=== PATIENT | male | born 1955 | race Caucasian/White ===

== ENCOUNTER 2016-09-17 08:27 | Day surgery (SDC) | payer OTHER ==
[~2016-09-17 08:27] MED LIST: Bupivacaine 0.5% 10 ML SDV ONE; Lactated Ringers 1,000 ML IV SCH; Lidocaine 1% 20 ML MDV ONE; Lidocaine 2% 5 ML SDV ONE; Midazolam 1 MG/ML 2 ML SDV ONE; Propofol 200 MG/20 ML SDV ONE; Sodium Chloride 0.9% 10 ML Syringe FLUSH PRN; Sodium Chloride 0.9% 2.5 ML Syringe FLUSH PRN; Zoledronic Acid in Water 4 MG in Premix Bag 1 BAG IV SCH; ceFAZolin 2 GM in Premix Bag 1 BAG IV ONE; fentaNYL 100 MCG/2 ML SDV ONE
--- NOTE | 2016-09-17 09:18 | PCM.PREANE ---
Preanesthetic Assessment - Anesthesia/Transfusion/Family Hx Anesthesia History: Prior Anesthesia Without Reaction Family History of Anesthesia Reaction: No Transfusion History: No Prior Transfusion(s) Intubation History: Unknown - Review of Systems General: No Symptoms Pulmonary: No Symptoms Cardiovascular: No Symptoms Gastrointestinal: No symptoms Neurological: No Symptoms Other: Reports: None - Physical Assessment Height: 1.65 m Weight: 75.75 kg ASA Class: 2 Mental Status: Alert & Oriented x3 Airway Class: Mallampati = 2 Dentition: Reports: Normal Dentition Thyro-Mental Finger Breadths: 3 Mouth Opening Finger Breadths: 3 ROM/Head Extension: Full Lungs: Clear to auscultation, Normal respiratory effort Cardiovascular: Regular Rate, Regular Rhythm - Allergies Allergies/Adverse Reactions: Allergies Allergy/AdvReac Type Severity Reaction Status Date / Time No Known Allergies Allergy Verified 07/14/15 10:40 - Blood Blood Available: No - Anesthesia Plan Pre-Op Medication Ordered: None - Acknowledgements Anesthesia Type Planned: General Anesthesia Pt an Appropriate Candidate for the Planned Anesthesia: Yes Alternatives and Risks of Anesthesia Discussed w Pt/Guardian: Yes Pt/Guardian Understands and Agrees with Anesthesia Plan: Yes PreAnesthesia Questionnaire HEENT History: Reports: Other (See Below) Other HEENT History: wears glasses Cardiovascular History: Reports: Hypertension Musculoskeletal History: Reports: Back Pain, Chronic, Other (See Below) Other Musculoskeletal History: lipoma on lower back, Oncologic (Cancer) History: Reports: Other (See Below) Other Oncologic History: 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 Dermatologic History: Reports: Other (See Below) Other Dermatologic History: multiple myeloma - Past Surgical History Head Surgeries/Procedures: Reports: None Musculoskeletal Surgical History: Reports: Other (See Below) Other Musculoskeletal Surgeries/Procedures:: hx of spine surgery as a child - SUBSTANCE USE Smoking Status *Q: Never Smoker Recreational Drug Use History: No - HOME MEDS Home Medications: Home Meds Aspirin 325 mg PO DAILY 07/14/15 [History] Lenalidomide [Revlimid] 25 mg PO ASDIRECTED 07/14/15 [History] Lisinopril [Lisinopril] 5 mg PO DAILY 07/14/15 [History] Calcium Carbonate [Calcium] 600 mg PO BID 09/10/16 [History] Gluc HCl/Csa/Cornelius Hy/Hyalur Ac [Glucosamine Chondroitin] 1 tab PO ASDIRECTED 08/22 [History] - CURRENT (IN HOUSE) MEDS Current Meds: Current Medications Zoledronic Acid 4 mg/ Premix 100 mls @ 200 mls/hr IV DAILY Stop: 10/05/16 23:59 Lactated Ringer's (Ringers, Lactated) 1,000 mls @ 125 mls/hr IV ASDIRECTED DAJA Last Admin: 09/17/16 08:55 Dose: 125 mls/hr Sodium Chloride (Saline Flush) 10 ml FLUSH ASDIRECTED PRN PRN Reason: Keep Vein Open Sodium Chloride (Saline Flush) 2.5 ml FLUSH ASDIRECTED PRN PRN Reason: Keep Vein Open Discontinued Medications Bupivacaine HCl (Sensorcaine-Mpf 0.5%) Confirm Administered Dose 10 ml .ROUTE .STK-MED ONE Stop: 09/17/16 07:26 Fentanyl (Sublimaze) Confirm Administered Dose 100 mcg .ROUTE .STK-MED ONE Stop: 09/17/16 07:18 Cefazolin Sodium/Dextrose 2 gm (/ Premix) 50 mls @ 100 mls/hr IV ONETIME ONE Stop: 09/16/16 17:08 Lidocaine (Xylocaine-Mpf 2%) Confirm Administered Dose 5 ml .ROUTE .STK-MED ONE Stop: 09/17/16 07:17 Lidocaine HCl (Xylocaine 1%) Confirm Administered Dose 20 ml .ROUTE .STK-MED ONE Stop: 09/17/16 07:26 Midazolam HCl (Versed 1 Mg/Ml) Confirm Administered Dose 2 mg .ROUTE .STK-MED ONE Stop: 09/17/16 07:18 Propofol (Diprivan 20 Ml) Confirm Administered Dose 400 mg .ROUTE .STK-MED ONE Stop: 09/17/16 07:18
[2016-09-17] MEDS ORDERED: ePHEDrine 50 MG/ML SDV ONE (11:22)
[2016-09-17] MEDS ORDERED: fentaNYL 100 MCG/2 ML SDV IVPUSH PRN (11:30)
[2016-09-17] MEDS ORDERED: Ondansetron 4 MG/2 ML SDV ONE (12:07)
--- NOTE | 2016-09-17 12:38 | PCM.OPNOTE ---
- General Post-Op/Procedure Note Date of Surgery/Procedure: 09/17/16 Operative Procedure(s): Excision left lower back lipoma Findings: 5 cm lipoma in left lower back Pre Op Diagnosis: lipoma Post-Op Diagnosis: same Anesthesia Technique: MAC Primary Surgeon: Vidya Boogie Condition: Good Free Text/Narrative:: Intake & Output 09/16/16 09/17/16 09/17/16 22:59 06:59 14:59 Intake Total 1999 Balance 1999
[2016-09-17 13:01] VITALS: BP 139/90
--- NOTE | 2016-09-18 11:29 | OR ---
SURGEON: INDERJIT TOURE MD DATE OF PROCEDURE: 09/17/2016 PREOPERATIVE DIAGNOSIS: Lower back lipoma. POSTOPERATIVE DIAGNOSIS: Lower back lipoma. PROCEDURE PERFORMED: Excision of left lower back lipoma. CLASSIFIER OPERATOR: Dr. Tahir Johnson, resident athletic trainer. ANESTHESIA: General LMA. ESTIMATED BLOOD LOSS: 5 mL. FINDINGS: Approximately 5 cm, left lower back lipoma. COMPLICATIONS: None. INDICATIONS: The patient is a 61-year-old male, who presents with a left lower back mass. An MRI was obtained previously for back pain. It was noted at that time, that he had a mass within the subcutaneous tissues consistent with lipoma. The patient is having difficulty sleeping because this provides an uneven sleeping surface for him. We discussed removing this mass via surgical excision. The patient and I discussed the procedure as well as the risks including bleeding, infection, or damage to surrounding structures. The patient verbalized understanding and wished to proceed. PROCEDURE IN DETAIL: The patient was brought into the OR in OR cart. Time-out was completed verifying the patient's name, age, date of , allergies, and procedure to be performed. General LMA anesthesia was then induced. The patient was then moved to the OR table and placed in a right lateral decubitus position. All bony structures were appropriately padded and protected. The lower back was then prepped and draped in the usual standard fashion. I anesthetized the area overlying the incision with 1% lidocaine plain. Using a #15 blade, I made approximately 6 cm incision overlying the left lower back over the mass. Using cautery, I dissected down through the subcutaneous tissues to the level of the mass. The mass appeared to have a small capsule around it and its consistency was that of a lipoma. Using blunt dissection and Metzenbaum scissors, I freed this mass from its surrounding tissues. The mass was abutting the muscular fascia of the back. Once I had freed the lipoma from all of the surrounding tissues, I passed it off the field and sent to pathology labeled as left lower back lipoma. Cautery was used to achieve hemostasis. I then began closing the subcutaneous tissues over the space where the mass had been. This was done with interrupted 3-0 Vicryl. Given the size of this mass, the patient has the redundant soft tissues overlying it. Using a #15 blade, I excised approximately 1 cm of skin to allow for a better closure. The skin was then closed with interrupted 3-0 Vicryl in the subcutaneous fat and a running 4-0 Monocryl suture. At the end of the case I anesthetized the wound with Percent Marcaine plain. Steri-Strips and sterile dressings were applied. The patient tolerated the procedure well and was taken to PACU in stable condition. All counts were complete and correct at the end of the case. AMOL العلي /[id number] MTDD
== END 2016-09-17 12:50 | disposition home or self-care (01) ==
LOC: MW.SDS 08:27
PROVIDERS: ATTEND Surgery
PROC: 0JB70ZZ Excision of Back Subcutaneous Tissue and Fascia, Open Approach (ICD-10-PCS; principal; 2016-09-17)
DX: D17.1 Benign lipomatous neoplasm of skin and subcutaneous tissue of trunk (principal); C90.00 Multiple myeloma not having achieved remission; D48.1 Neoplasm of uncertain behavior of connective and other soft tissue; I10 Essential (primary) hypertension; M89.9 Disorder of bone, unspecified; R22.2 Localized swelling, mass and lump, trunk; M62.830 Muscle spasm of back; Z79.82 Long term (current) use of aspirin; Z79.899 Other long term (current) drug therapy
CPT/HCPCS: 21931; 88304; J2250; J2405; J3010; J3489; J7120; 00300; J2704